=== PATIENT | female | born 1940 | race African-American/Black ===

== ENCOUNTER 2016-09-29 20:23 | Emergency (ER) | payer OTHER ==
[~2016-09-29] VITALS: Ht 157.5 cm; Wt 55.0 kg
[~2016-09-29 20:23] MED LIST: ATOR20TA65 PO; CYCL25CA PO; DILT180C64; DILTIAZEM; EZET10TA PO; FURO20TA4 PO; HYDR100T31 PO; MYCO200S PO; POTA10TA70 PO; PRED5TAB PO; TERA2CAP16 PO; [UNRECOGNIZED DRUG - CODE] PO
[2016-09-29 21:41] LABS: BASOPHILS % 0.8 % (0.0-2.0); EOSINOPHILS % 2.5 % (0.0-5.0); HEMATOCRIT. 33.8 % (36.0-48.0); HEMOGLOBIN. 10.7 g/dL (12.0-16.0); LYMPHOCYTES % 34.4 % (20.0-50.0); MEAN CORPUSCULAR HEMOGLOBIN 29.1 pg (28.0-32.0); MEAN CORPUSCULAR VOLUME 92.5 fL (81.0-99.0); MEAN PLATELET VOLUME 10.3 fl (7.4-10.4); MONOCYTES % 4.6 % (2.0-8.0); NEUTROPHILS % 57.7 % (40.0-76.0); PLATELET 156 x1000/uL (130-400); RED BLOOD CELL COUNT 3.66 mill/uL (4.2-5.4); RED CELL DISTRIBUTION WIDTH 19.2 % (11.6-14.6)
[2016-09-29 21:44] LABS: INR 1.1; PROTHROMBIN TIME 11.9 sec
[2016-09-29 21:48] LABS: CARBON DIOXIDE 33 mEq/L (21-32); CHLORIDE 93 mEq/L (98-107)
[2016-09-29] MEDS ORDERED: DEXTROSE 50% WATER 50ML SYRINGE IV ONE (22:00)
[2016-09-29 22:30] VITALS: BP 173/93
== END 2016-09-29 23:14 | disposition left against medical advice (07) ==
LOC: ER 20:27
DX: T82.838A Hemorrhage due to vascular prosthetic devices, implants and grafts, initial encounter (principal); I12.0 Hypertensive chronic kidney disease with stage 5 chronic kidney disease or end stage renal disease; N18.6 End stage renal disease; E78.00 Pure hypercholesterolemia, unspecified; E11.9 Type 2 diabetes mellitus without complications; D64.9 Anemia, unspecified; E21.3 Hyperparathyroidism, unspecified; Y92.89 Other specified places as the place of occurrence of the external cause; Z99.2 Dependence on renal dialysis; Z88.1 Allergy status to other antibiotic agents
CPT/HCPCS: 36415; 80053; 85025; 85610; 99284

== ENCOUNTER 2016-12-11 15:46 | Emergency (ER) | payer OTHER, MEDICAID ==
[~2016-12-11] VITALS: Ht 167.6 cm; Wt 50.0 kg
[~2016-12-11 15:46] MED LIST changes: -DILT180C64; +DILT180C93; -EZET10TA PO; +POTA10TA2 PO; -POTA10TA70 PO; +ZET10 PO
[2016-12-11] MEDS ORDERED: DEXTROSE 50% WATER 50ML SYRINGE IV ONE ×2 (17:20→17:30)
[2016-12-11 17:28] LABS: BASOPHILS % 0.6 % (0.0-2.0); EOSINOPHILS % 5.9 % (0.0-5.0); HEMATOCRIT. 33.7 % (36.0-48.0); HEMOGLOBIN. 10.9 g/dL (12.0-16.0); LYMPHOCYTES % 43.9 % (20.0-50.0); MEAN CORPUSCULAR VOLUME 83.6 fL (81.0-99.0); MEAN PLATELET VOLUME 9.6 fl (7.4-10.4); MONOCYTES % 8.6 % (2.0-8.0); PLATELET 154 x1000/uL (130-400); RED BLOOD CELL COUNT 4.03 mill/uL (4.2-5.4); RED CELL DISTRIBUTION WIDTH 16.6 % (11.6-14.6)
[2016-12-11 17:31] LABS: CHLORIDE 97 mEq/L (98-107); INR 1.2; PROTHROMBIN TIME 12.2 sec (9.4-11.6)
[2016-12-11 17:37] LABS: CARBON DIOXIDE 31 mEq/L (21-32)
[2016-12-11 17:40] LABS: TROPONIN I 0.07 ng/mL (0.00-0.04)
[2016-12-11 17:42] LABS: PHOSPHORUS 2.1 mg/dL (2.5-4.9)
[2016-12-11 17:57] VITALS: BP 150/80
== END 2016-12-11 18:18 | disposition left against medical advice (07) ==
LOC: ER 16:20 → CANBEDREQ 12-12 01:45
DX: I67.1 Cerebral aneurysm, nonruptured (principal); N17.9 Acute kidney failure, unspecified; E11.649 Type 2 diabetes mellitus with hypoglycemia without coma; I12.0 Hypertensive chronic kidney disease with stage 5 chronic kidney disease or end stage renal disease; N18.6 End stage renal disease; E11.22 Type 2 diabetes mellitus with diabetic chronic kidney disease; I69.354 Hemiplegia and hemiparesis following cerebral infarction affecting left non-dominant side; I69.351 Hemiplegia and hemiparesis following cerebral infarction affecting right dominant side; E87.8 Other disorders of electrolyte and fluid balance, not elsewhere classified; E78.00 Pure hypercholesterolemia, unspecified; D64.9 Anemia, unspecified; I51.7 Cardiomegaly; Z99.2 Dependence on renal dialysis; Z79.4 Long term (current) use of insulin; Z86.74 Personal history of sudden cardiac arrest; Z88.0 Allergy status to penicillin; Z95.810 Presence of automatic (implantable) cardiac defibrillator; E46 Unspecified protein-calorie malnutrition; Z68.1 Body mass index [BMI] 19.9 or less, adult
CPT/HCPCS: 36415; 70496; 80053; 82962; 83605; 83735; 84100; 84484; 85025; 85610; 87040; 93005; 96374; 99291; Q9967